=== PATIENT | male | born 1970 | race Caucasian/White ===

== ENCOUNTER 2018-11-29 09:21 | Emergency (ER) | payer BC ==
[2018-11-29 09:38] VITALS: BP 125/81
--- NOTE | 2018-11-29 09:43 | EDPHY ---
H & P Time Seen by Provider: 11/29/18 09:41 HPI/ROS: Chief complaint. Eye pain HPI. Patient is a 48-year-old male who was walking to the bus this morning to go to work. He looked down to avoid slipping on ice. He was wearing sunglasses. However with looking down he was poked in the left eye with a pine tree branch. He has foreign body sensation and tearing. He does wear glasses. Otherwise has no eye history of previous surgery for glaucoma. He does not wear contact lens. No other injuries. ROS 10 systems were reviewed and negative with the exception of the elements mentioned in the history of present illness Past Medical/Surgical History: Healthy Social History: , nonsmoker, no alcohol Smoking Status: Never smoked Physical Exam: General Appearance: Alert well-developed male moderate distress vital signs are stable Eyes: Pupils are equal round and reactive. Left eye is injected. Inspection including eversion of the upper lid reveals no evidence for foreign body.. ENT, Mouth: Mucous membranes are moist. Respiratory: There are no retractions, lungs are clear to auscultation. Cardiovascular: Regular rate and rhythm. Gastrointestinal: Abdomen is soft and nontender, no masses, bowel sounds normal. Neurological: Awake and alert, sensory and motor exams grossly normal. Skin: Warm and dry, no rashes. Musculoskeletal: Neck is supple nontender. Extremities symmetrical, full range of motion. Psychiatric: Patient is oriented X 3, there is no agitation. Constitutional: Initial Vital Signs Temperature (C) 36.8 C 11/29/18 09:36 Heart Rate 78 11/29/18 09:36 Respiratory Rate 16 11/29/18 09:36 Blood Pressure 125/81 H 11/29/18 09:36 O2 Sat (%) 97 11/29/18 09:36 O2 Delivery Mode Room Air Allergies/Adverse Reactions: No Known Allergies Allergy (Unverified 11/29/18 09:34) Home Medications: Medication Instructions Recorded Gentamicin 0.3% [Gentak 0.3% Opht 2 drops LEFTEYE QID #1 opht.btl 11/29/18 Drops] oxyCODONE/APAP 5/325 [Percocet 1 tab PO Q4-6PRN PRN #10 tab 11/29/18 5/325] Medical Decision Making Procedures: Alcaine and fluorescein are instilled in the left eye. The eye is examined under slit lamp. Patient has large superficial lateral corneal abrasion. No evidence for foreign body. No evidence for perforation ED Course/Re-evaluation: Patient and I discussed exam findings, treatment plan including criteria for return and importance of follow-up and further evaluation. He expresses understanding agreement Differential Diagnosis: Patient has corneal abrasion. I considered perforation, retained foreign body. Departure - Departure Disposition: Home, Routine, Self-Care Clinical Impression: Corneal abrasion Qualifiers: Encounter type: initial encounter Laterality: left Qualified Code(s): S05.02XA - Injury of conjunctiva and corneal abrasion without foreign body, left eye, initial encounter Condition: Good Instructions: Corneal Abrasion (ED) Additional Instructions: Antibiotic eyedrops using 2 drops 4 times daily for 3 days. Ibuprofen 600 mg every 6 hr for discomfort. Percocet in addition for pain if necessary. Return for worsening symptoms. See psych therapist for re-evaluation in 2 days. Referrals: NONE *PRIMARY CARE P,. [Primary Care Provider] - As per Instructions Ehsan Cline MD [Medical Doctor] - 1-2 days without fail Prescriptions: Gentamicin 0.3% [Gentak 0.3% Opht Drops] 2 drops LEFTEYE QID #1 opht.btl oxyCODONE/APAP 5/325 [Percocet 5/325] 1 tab PO Q4-6PRN PRN #10 tab PRN Reason: Pain, Moderate
[2018-11-29] MEDS ORDERED: FLUORESCEIN SODIUM 1 MG STRIP OP ONE (09:51)
[2018-11-29] MEDS ORDERED: PROPARACAINE 0.5% 15 ML OPHT DROP ONE (09:51)
== END 2018-11-29 10:32 | disposition home or self-care (01) ==
DX: S05.02XA Injury of conjunctiva and corneal abrasion without foreign body, left eye, initial encounter (principal); W22.8XXA Striking against or struck by other objects, initial encounter; Y92.9 Unspecified place or not applicable; Y93.9 Activity, unspecified; Y99.9 Unspecified external cause status